=== PATIENT | female | born 2000 | race Caucasian/White ===

== ENCOUNTER 2020-08-20 15:54 | Emergency (ER) | payer OTHER ==
--- NOTE | 2020-08-20 16:36 | EDM.PDOC ---
ED HPI GENERAL MEDICAL PROBLEM - General Chief Complaint: Lower Extremity Injury/Pain Stated Complaint: B LEG PAIN Time Seen by Provider: 08/20/20 16:00 Source of Information: Reports: Patient, Family, RN Notes Reviewed History Limitations: Reports: No Limitations - History of Present Illness INITIAL COMMENTS - FREE TEXT/NARRATIVE: Patient is a 20-year-old female presenting to the emergency department with complaints of bilateral calf pain which began last evening. She describes it as aching in the medial aspect of her calfs. She verbalized that she has a history of compartment syndrome in her calves requiring bilateral fasciotomy in 2017 caused by intensive running; however,she has not ran since that time. She is on her feet daily for work but denies any recent injury or strenuous exercise. She occasionally gets tingling in her bilateral feet but states it is not present at this time. Bilateral Lower Posterior Leg Pain Score (Numeric/FACES): 8 - Related Data Allergies Allergy/AdvReac Type Severity Reaction Status Date / Time Penicillins Allergy Severe Rash Verified 08/20/20 16:08 Home Meds: Home Meds DULoxetine [Cymbalta] 20 mg PO DAILY 08/20/20 [History] Propranolol [Inderal] 20 mg PO BEDTIME 08/20/20 [History] Past Medical History Musculoskeletal History: Reports: Other (See Below) Other Musculoskeletal History: esteban lower extremity compartment syndrome Neurological History: Reports: Migraines - Past Surgical History Musculoskeletal Surgical History: Reports: Other (See Below) Other Musculoskeletal Surgeries/Procedures:: esteban. fasciotomy Social & Family History - Tobacco Use Tobacco Use Status *Q: Never Tobacco User - Recreational Drug Use Recreational Drug Use: No Review of Systems - Review of Systems Review Of Systems: Comprehensive ROS is negative, except as noted in HPI. ED EXAM, GENERAL - Physical Exam Exam: See Below Exam Limited By: No Limitations General Appearance: Alert, WD/WN, No Apparent Distress Respiratory/Chest: No Respiratory Distress, Lungs Clear, Normal Breath Sounds, No Accessory Muscle Use, Chest Non-Tender Cardiovascular: Normal Peripheral Pulses, Regular Rate, Rhythm, No Edema, No Gallop, No JVD, No Murmur, No Rub Extremities: Normal Inspection, Normal Range of Motion, Non-Tender, No Pedal Edema, Normal Capillary Refill, Other (Fasciotomy scars to lateral aspects of bilateral lower extremities. 2+ pedal pulses. Worsening of discomfort with passive dorsiflexion of the bilateral feet. No pain with plantarflexion. Bilateral calf muscles are soft to palpation.). No: Redness Neurological: Alert, Oriented, CN II-XII Intact, Normal Cognition, Normal Gait, Normal Reflexes, No Motor/Sensory Deficits Psychiatric: Normal Affect, Normal Mood Skin Exam: Warm, Dry, Intact, Normal Color, No Rash Course - Vital Signs Last Recorded V/S: Last Vital Signs Temp 98.6 F 08/20/20 16:04 Pulse 72 08/20/20 16:04 Resp 16 08/20/20 16:04 BP 119/82 08/20/20 16:04 Pulse Ox 96 08/20/20 16:04 - Orders/Labs/Meds Labs: Laboratory Tests 08/20/20 08/20/20 Range/Units 16:31 16:31 D-Dimer, Quantitative < 0.19 L (0.19-0.50) mg/L Creatine Kinase 128 (26-192) U/L - Re-Assessments/Exams Free Text/Narrative Re-Assessment/Exam: Patient is a 20-year-old female presenting to the emergency department with complaints of bilateral calf pain which began last evening. She has a history significant for bilateral compartment syndrome requiring fasciotomy in 2017 related to intensive running. She is not had any recent injuries and has not partaking in any strenuous activity. States she is on her feet for work daily. Her exam is normal. CMS is intact distal to the calves bilaterally. Calf muscles are soft to palpation with no significant pain on palpation. Case discussed with orthopedist, Dr. Young. He advised it is highly unlikely that she would develop compartment syndrome in the absence of injury or strenuous activity. Recommended ice and elevation. I have ordered a CK and a D-dimer to rule out muscle wasting and DVT. Dr. Young did state that he will see her in clinic and follow-up as needed. 08/20/20 17:13 CK and D-dimer are normal. I will send referral to Dr. Young for him to follow- up and monitor in the clinic. Discussed return precautions with the patient., Recommend ice and elevation per Dr. Young's recommendation. Discharge instructions as documented. Departure - Departure Time of Disposition: 17:13 Disposition: Home, Self-Care 01 Condition: Good Clinical Impression: Leg pain, bilateral - Discharge Information *PRESCRIPTION DRUG MONITORING PROGRAM REVIEWED*: No *COPY OF PRESCRIPTION DRUG MONITORING REPORT IN PATIENT BOY: No Referrals: Tacho Young MD [Physician] - Forms: ED Department Discharge, ED Return to Work/School Form Additional Instructions: You were seen in the emergency department today for pain to your bilateral calfs. Blood work was completed in ER and was found to be normal. Your case was discussed with orthopedist, Dr. Young. He recommends that you rest and ice and elevate your lower extremities. He will to see you in the clinic in follow- up. A referral has been sent. The number to schedule him as listed below. Recommend that you call tomorrow morning to set up an appointment with him. If you should experience worsening symptoms, please not hesitate to return the emergency department. Sepsis Event Note (ED) - Evaluation Sepsis Screening Result: No Definite Risk
== END 2020-08-20 17:33 | disposition home or self-care (01) ==
LOC: JD.ED 15:54
DX: M79.661 Pain in right lower leg (principal); M79.662 Pain in left lower leg; Z98.890 Other specified postprocedural states; Z88.0 Allergy status to penicillin
CPT/HCPCS: 36415; 82550; 85379; 99283